=== PATIENT | male | born 1945 | race Caucasian/White ===

== ENCOUNTER 2022-03-08 08:00 | Outpatient (CLI) | payer MEDICARE, BC, SELFPAY ==
--- OUTSIDE RECORDS SUMMARY | 2022-03-08 08:06 | XMS_ITS | Clinical Summary ---
:1945 Author Organization [facility] [place] [address] Care Team Providers Name Role Phone Cristobal Irizarry MD Primary Care Provider Allergies No known active allergies Medications Medication Sig Dispensed Refills Start Date End Date Status brimonidine 0 08/19/2020 Active (ALPHAGAN) 0.2 % ophthalmic solution latanoprost (XALATAN) INSTILL 1 DROP 0 09/09/2020 Active 0.005 % ophthalmic INTO IN EACH EYE solution ONCE DAILY IN THE EVENING timoloL maleate INSTILL 1 DROP IN 0 09/15/2020 Active (TIMOPTIC) 0.5 % EACH EYE DAILY IN ophthalmic solution THE MORNING medication order Preservision- 0 02/27/2021 Active composer Takes one tablet BID. tamsulosin (FLOMAX) Take 2 Capsules 180 Capsule 3 08/28/2021 Active 0.4 mg (0.8 mg) by mouth capsuleIndications: once daily after Benign prostatic a meal. hyperplasia with urinary frequency Active Problems Not on file Immunizations Name Administration Dates Next Due COVID-19 vaccine ([employer] 10/08/2020, 09/17/2020 30mcg/0.3mL) PF, MDV Influenza RIV4 (Age 18+ Years) PRESERV 05/21/2019 FREE Influenza, High-dose Inactivated 04/25/2018, 04/18/2017, Influenza, Inactivated AIIV4 (Age 65+ 03/30/2020 Years) Preserv Free Pneumococcal Poly,23-Valent (Pneumovax) 05/22/2017 Pneumococcal conj 13-Valent (Prevnar 13) 09/19/2016 Tdap 05/02/2016 Zoster (Shingrix-RZV, recombinant) 05/03/2020, 02/29/2020 Social History Tobacco Use Types Packs/Day Years Used Date Never Smoker Smokeless Tobacco: Never Used Tobacco Cessation: Counseling Given: Yes Alcohol Use Standard Drinks/Week Comments Not Currently 0 (1 standard drink = 0.6 oz pure alcoho l) Sex Assigned at Date Recorded Not on file Obstetrics History Last Filed Vital Signs Vital Sign Reading Time Taken Comments Blood Pressure 196/79 08/28/2021 12:57 PM ADMITTED ATTORNEYS Pulse 57 08/28/2021 12:57 PM ADMITTED ATTORNEYS Temperature - - Respiratory Rate 18 10/10/2020 2:16 PM CDT Oxygen Saturation 98% 08/28/2021 12:57 PM ADMITTED ATTORNEYS Inhaled Oxygen Concentration - - Weight 78.7 kg (173 lb 8 oz) 08/28/2021 12:57 PM ADMITTED ATTORNEYS Height - - Body Mass Index - - Plan of Treatment Health Maintenance Due Date Last Done Comments Depression screening for age 12+ 1955 BMI (ht and wt on same day) for 1961 age 18+ Hepatitis C screening for age 0903/16/1961 18-79 Medicare Wellness for age 65+ 2008 COVID-19 vaccine series (4 - 10/14/2021 06/15/2021, 021, Booster for Pfizer series) 09/17/2020 Influenza for age 65+ 03/08/2022 03/30/2020, 05/21/2019, 04/25/2018, Additional history exists Tetanus booster 05/02/2026 05/02/2016 Tdap Completed 05/02/2016 Pneumococcal series for age 65+ Completed 05/22/2017, 09/05 Zoster (shingles) series for age Completed 05/03/2020, 50+ Results Not on filefrom Last 3 Months Insurance Payer Benefit Plan / Subscriber ID Effective Dates Phone Addre ss Type Group BLUE CROSS MR BLUE CROSS [id number] 2017-Present [address] [address] [place], [place] [phone] Care Teams Leasing Assistant Relationship Specialty Start Date End Date Cristobal Irizarry MD PCP - General Internal Medicine 10/10/201999 [place] [phone]
[2022-03-08 10:07] LABS: Albumin* 3.7 g/dL (3.3-5.0)
[2022-03-08 10:08] LABS: Chloride* 106 mmol/L (96-114); Sodium* 142 mmol/L (135-149)
[2022-03-08 10:10] LABS: Aspartate Amino Transferase* 23 U/L (12-35); Bilirubin Total* 0.9 mg/dL (0.1-1.5); Carbon Dioxide* 31 mmol/L (20-32); Creatinine* 1.2 mg/dL (0.5-1.5); Estimated Glomerular Filt Rate 62 ml/min
[2022-03-08 10:11] LABS: Alanine Aminotransferase* 20 U/L (4-50); Alkaline Phosphatase* 57 U/L (40-150); Blood Urea Nitrogen* 32 mg/dL (7-30); Calcium* 8.8 mg/dL (8.4-10.6); Glucose* 90 mg/dL (60-115); Total Protein* 6.9 g/dL (6.0-8.3)
[2022-03-08 10:42] LABS: PSA Screen* 4.82 ng/mL (0.10-4.00)
== END 2022-03-08 08:01 | disposition home or self-care (01) ==
PROVIDERS: PCP Internal Medicine; Visit Provider Internal Medicine
DX: N40.0 Benign prostatic hyperplasia without lower urinary tract symptoms (principal); R63.4 Abnormal weight loss
CPT/HCPCS: 80053; 84153; 87086; 87186

== ENCOUNTER 2022-03-19 11:36 | Emergency (ER) | payer MEDICARE, BC, SELFPAY ==
[2022-03-19 11:53] VITALS: BP 162/76; PULSE 62; RESP 18; TEMP 36.6; O2SAT 99; BMI 19.5
--- OUTSIDE RECORDS SUMMARY | 2022-03-19 13:38 | XMS_ITS | Clinical Summary ---
:1945 Author Organization [facility] [place] [address] Care Team Providers Name Role Phone Cristobal [...] Name Administration Dates Next Due COVID-19 vaccine ([employer] 10/08/2020, 09/17/2020 30mcg/0.3mL) PF, MDV Influenza RIV4 [...] Comments Blood Pressure 196/79 08/28/2021 12:57 PM EXCELLENCE SPECIALIST Pulse 57 08/28/2021 12:57 PM EXCELLENCE SPECIALIST Temperature - - Respiratory Rate 18 10/10/2020 2:16 PM CDT Oxygen Saturation 98% 08/28/2021 12:57 PM EXCELLENCE SPECIALIST Inhaled Oxygen Concentration - - Weight 78.7 kg (173 lb 8 oz) 08/28/2021 12:57 PM EXCELLENCE SPECIALIST Height - - Body Mass Index - [...] Type Group BLUE CROSS MR BLUE CROSS [id number] 2017-Present [address] [address] [place], [place] [phone] Care Teams Bottom Saw Operator Relationship Specialty Start Date End Date Cristobal Irizarry MD PCP - General Internal Medicine 10/10/201999 [place] [phone]
[2022-03-19 13:45] VITALS: BP 177/89; PULSE 54; RESP 18; TEMP 36.2; O2SAT 99
--- NOTE | 2022-03-19 15:40 | ED_ITS ---
HPI - General Adult General Chief complaint: Unspecified Complaint, Adult Stated complaint: dizziness/from clinic Time Seen by Provider: 03/19/22 12:51 History of Present Illness HPI narrative: 77-year-old man presenting to the emergency department upon recommendation of clinic nursing assessment. He had gone there not hearing back about results from recent lab drawn that was done for excessive weight loss. He notes losing I believe least 20 lb over the last 5 months or so unintentionally. Is not describing night sweats. He is not having any pain. Is not vomiting. He was following up today for the labs which admittedly relatively normal-I do review these as well. Looks like next step plan was generalized potential CT imaging if weight loss continued. He also apparently mention that his stool has been dark couple of days ago. He says to me it was not really black it was just darker than usual. The other thing he mentioned is that he is feeling a little dizzy with blurry vision around placement of his eyedrops for glaucoma. He tells me more that he has a sense of wobbliness with some quicker vigorous movements of rather chronic nature. He continues to get up once or twice at night to urinate. Does have known BPH. First thing he says to me is that he is only here because a nurse told him to present to the emergency department. Related Data Home Medications Medication Instructions Recorded Confirmed brimonidine 0.2 % eye drops 1 drp ophthalmic (eye) BID 01/03/22 03/08/22 latanoprost 0.005 % eye drops 1 drp ophthalmic (eye) .Bedtime 01/03/22 03/08/22 multivitamin 1 tab PO QAM 01/03/22 03/08/22 tamsulosin 0.4 mg capsule 2 mg PO DAILY 01/03/22 03/08/22 timolol maleate 0.5 % eye drops 1 drp ophthalmic (eye) BID 01/03/22 03/08/22 Allergies Allergy/AdvReac Type Severity Reaction Status Date / Time No Known Allergies Allergy Unverified 03/08/22 07:43 Review of Systems Status of ROS: Reports: 6 or more systems reviewed and unremarkable except as noted in History and below [facility] Medical History (Updated 03/20/22 @ 15:22 by Gavin Ellis MD) BPH (benign prostatic hyperplasia) Food additives allergy status Weight loss Family History Other Colon cancer Social History Smoking Status: Never smoker Do you use any of these nicotine containing products: None Second hand tobacco smoke exposure: No How often do you have a drink containing alcohol: never How often do you have six or more drinks on one occasion: Never AUDIT-C Alcohol total score: 0 Non-prescribed substance use: denies use Exam Narrative: Exam Narrative: Tall. Thin but not cachectic. Breathing easily. Hesitates a little bit with his speech. Cranial nerves 2-12 intact. As noted pupils equal round reactive to light and accommodation. Testing appears to be not painful. Lungs are clear. Skin is warm and dry. No bruising/indication of trauma noted. Well perfused moving all extremities without difficulty. Does not appear to have a difficulty with transitions. Abdomen is soft nontender. Const: Vital Signs, click to edit/add: Vital Signs - 24 hr 03/19/22 11:53 03/19/22 13:45 Temperature 97.9 F 97.1 F L Pulse Rate [Right Pulse Oximeter] 62 54 L Respiratory Rate 18 18 Blood Pressure [Ri ght Upper Arm] 162/76 H 177/89 H Pulse Oximetry 99 99 Oxygen Delivery Me thod Room Air Room Air Documenting provider has reviewed patient's vital signs: yes Course Course Hospital Course: no interventions Vital Signs Vital signs: Initial Vital Signs Temperature 97.9 F 03/19/22 11:53 Temperature Source Temporal Artery Scan 03/19/22 11:53 Pulse Rate 62 03/19/22 11:53 Respiratory Rate 18 03/19/22 11:53 Blood Pressure 162/76 H 03/19/22 11:53 Blood Pressure Mean 104 03/19/22 11:53 Blood Pressure Position Sitting 03/19/22 11:53 Pulse Oximetry 99 03/19/22 11:53 Oxygen Delivery Method 03/19/22 11:53 Vital Signs Temperature 97.9 F 03/19/22 11:53 Pulse Rate 62 03/19/22 11:53 Respiratory Rate 18 03/19/22 11:53 Blood Pressure 162/76 H 03/19/22 11:53 Pulse Oximetry 99 03/19/22 11:53 Oxygen Delivery Method 03/19/22 11:53 Temperature 97.1 F L 03/19/22 13:45 Pulse Rate 54 L 03/19/22 13:45 Respiratory Rate 18 03/19/22 13:45 Blood Pressure 177/89 H 03/19/22 13:45 Pulse Oximetry 99 03/19/22 13:45 Oxygen Delivery Method 03/19/22 13:45 Medical Decision Making MDM Narrative Medical decision making narrative: There does not appear to be an acute problem here. Primary care provider is aware of Mr. Garcia's concerns and has a plan. I reviewed recently available labs. wnl with only sl elev of psa. looks like some still pending comparing provider notes to resulted labs. Discharge Plan Discharge Clinical Impression: Unexplained weight loss, Chronic vertigo Patient Disposition: Home, Self-Care Condition: Stable Additional Instructions: Yes. Please follow-up with Dr. Irizarry in a month as planned. I would anticipate hearing from him shortly regarding your labs. Check your weight weekly. Return for worsening and persistent dizziness or lightheadedness, shortness of breath, marked increase in weakness, chest pain. Take care in transitions. Prescriptions: No Action timolol maleate 0.5 % drops 1 drp ophthalmic (eye) BID brimonidine 0.2 % drops 1 drp ophthalmic (eye) BID tamsulosin 0.4 mg capsule 2 mg PO DAILY latanoprost 0.005 % drops 1 drp ophthalmic (eye) .Bedtime multivitamin Tablet 1 tab PO QAM Follow Up/Referrals: Cristobal Irizarry MD [Primary Care Provider] - Stand Alone Forms: [id number] Info Instructions
== END 2022-03-19 13:48 | disposition home or self-care (01) ==
LOC: ED 13:36
PROVIDERS: Emergency Provider Family Medicine; PCP Internal Medicine
DX: R42 Dizziness and giddiness (principal); R63.4 Abnormal weight loss
CPT/HCPCS: 99282; 99283

== ENCOUNTER 2022-05-24 13:45 | Outpatient (CLI) | payer MEDICARE, BC, SELFPAY ==
--- OUTSIDE RECORDS SUMMARY | 2022-06-04 14:52 | XMS_ITS | Clinical Summary ---
:1945 Author Organization [facility] [place] [address] Care Team Providers Name Role Phone Cristobal [...] Name Administration Dates Next Due COVID-19 vaccine ([email or web address] 10/08/2020, 09/17/2020 30mcg/0.3mL) PF, MDV Influenza RIV4 [...] Comments Blood Pressure 196/79 08/28/2021 12:57 PM ERRAND RUNNER Pulse 57 08/28/2021 12:57 PM ERRAND RUNNER Temperature - - Respiratory Rate 18 10/10/2020 2:16 PM CDT Oxygen Saturation 98% 08/28/2021 12:57 PM ERRAND RUNNER Inhaled Oxygen Concentration - - Weight 78.7 kg (173 lb 8 oz) 08/28/2021 12:57 PM ERRAND RUNNER Height - - Body Mass Index - - Plan of Treatment Health Maintenance Due Date Last Done Comments Depression screening for age 12+ 1955 BMI (ht and wt on same day) for 1961 age 18+ Hepatitis C screening for age 0903/16/1961 18-79 Medicare Wellness for age 65+ 2008 COVID-19 vaccine series (4 - 08/10/2021 06/15/2021, 021, Booster for Pfizer series) 09/17/2020 [...] Type Group BLUE CROSS MR BLUE CROSS [id number] 2017-Present [address] [address] [place], [place] [phone] Care Teams Sales Stock Associate Relationship Specialty Start Date End Date Cristobal Irizarry MD PCP - General Internal Medicine 10/10/201999 [place] [phone]
== END 2022-05-24 13:46 | disposition home or self-care (01) ==
LOC: NFLDREF 06-04 14:43
PROVIDERS: PCP Internal Medicine; Visit Provider Internal Medicine
DX: R63.4 Abnormal weight loss (principal); N40.0 Benign prostatic hyperplasia without lower urinary tract symptoms
CPT/HCPCS: 87086; 87186

== ENCOUNTER 2023-03-14 08:55 | Outpatient (CLI) | payer MEDICARE, BC, SELFPAY | END 2023-03-14 08:56 | disposition home or self-care (01) | LOC: NFLDREF 03-15 08:03 | PROVIDERS: PCP Internal Medicine; Referring Provider Internal Medicine; Visit Provider Internal Medicine | DX: Z12.5 Encounter for screening for malignant neoplasm of prostate (principal); Z13.6 Encounter for screening for cardiovascular disorders | CPT/HCPCS: 80053; 80061; 84153 ==

== ENCOUNTER 2023-03-19 09:10 | Outpatient (CLI) | payer MEDICARE, BC, SELFPAY | END 2023-03-19 09:11 | disposition home or self-care (01) | PROVIDERS: PCP Internal Medicine; Visit Provider Internal Medicine | DX: R63.4 Abnormal weight loss (principal); N39.0 Urinary tract infection, site not specified; N40.0 Benign prostatic hyperplasia without lower urinary tract symptoms; F41.9 Anxiety disorder, unspecified | CPT/HCPCS: 80053; 84153; 84443; 87086 ==

== ENCOUNTER 2023-04-03 09:27 | Outpatient (CLI) | payer MEDICARE, BC, SELFPAY | END 2023-04-03 09:28 | disposition home or self-care (01) | LOC: NFLDREF 04-06 13:52 | PROVIDERS: PCP Internal Medicine; Referring Provider Internal Medicine; Visit Provider Internal Medicine | DX: N39.0 Urinary tract infection, site not specified (principal) | CPT/HCPCS: 87086 ==

== ENCOUNTER 2023-11-27 09:46 | Outpatient (CLI) | payer MEDICARE, BC, SELFPAY ==
--- OUTSIDE RECORDS SUMMARY | 2023-11-27 09:50 | XMS_ITS | Clinical Summary ---
Author Organization [facility] Address [place], [place] [address] Care Team Providers Care Mechanical Maintenance Technician Name Role Phone Cristobal Irizarry MD Primary Care Provider Allergies No known active allergies Medications Medication Sig Dispensed Refills Start Date End Date Status brimonidine (ALPHAGAN) 0.2 % ophthalmic solution 08/19/2020 Activ e latanoprost (XALATAN) 0.005 % ophthalmic solution INSTILL 1 DROP INTO IN EACH EYE ONCE DAILY IN THE EVENING 09/09/2020 Active timoloL maleate (TIMOPTIC) 0.5 % ophthalmic solution INSTILL 1 DROP IN EACH EYE DAILY IN THE MORNING 09/15/2020 Active medication order composer Preservision- Takes one tablet BID. 0 02/27/2021 Active tamsulosin (FLOMAX) 0.4 mg capsuleIndications:B enign prostatic hyperplasia with urinary frequency Take 2 Capsules (0.8 mg) by mouth once daily after a meal. 180 Capsule 3 08/28/2021 Active Immunizations Name Administration Dates Next Due COVID-19 vaccine ([employer] NTBiart 30mcg/0.3mL) JACKIE JACKSON 10/08/2020,09/17/2020 Influenza RIV4 (Age 18+ Years) PRESERV FREE 05/08 Influenza, High-dose Inactivated 04/25/2018,04/07,05/02/2016 Influenza, Inactivated AIIV4 (Age 65+ Years) Preserv Free 03/30/2020 Pneumococcal Poly,23-Valent (Pneumovax) 05/22/20 17 Pneumococcal conj 13-Valent (Prevnar 13) 017 Tdap 05/02/2016 Zoster (Shingrix-RZV, recombinant) 05/03/2020, Social History Tobacco Use Types Packs/Day Years Used Date Smoking Tobacco: Never Smokeless Tobacco: Never Tobacco Cessation:Counseling Given: Yes Alcohol Use Standard Drinks/Week Comments Not Currently 0 (1 standard drink = 0.6 oz pur e alcohol) Sex and Gender Information Value Date Recorded Sex Assigned at Not on file Gender Identity Not on file Sexual Orientation Not on file Obstetrics History Last Filed Vital Signs Vital Sign Reading Time Taken Comments Blood Pressure 196/79 08/28/2021 12:57 PM BOTTOM TURNING LATHE TURNER Pulse 57 08/28/2021 12:57 PM BOTTOM TURNING LATHE TURNER Temperature - - Respiratory Rate 18 10/10/2020 2:16 PM CDT Oxygen Saturation 98% 08/28/2021 12:57 PM BOTTOM TURNING LATHE TURNER Inhaled Oxygen Concentration - - Weight 78.7 kg (173 lb 8 oz) 08/28/2021 12:57 PM BOTTOM TURNING LATHE TURNER Height - - Body Mass Index - - Plan of Treatment Health Maintenance Due Date Last Done Comments Depression screening for age 12+ 1955 BMI (ht and wt on same day) for age 18+ 1961 Medicare Wellness for age 65+ 2008 COVID-19 vaccine series ( season) 2023 06/15/2021, 10/08/2020, 09/17/2020 Influenza for age 65+ 03/08/2024 03/30/2020 , 05/21/2019, 04/25/2018, Additional history exists Tetanus booster 05/02/2026 05/02/2016 Tdap Completed 05/02/2016 Pneumococcal series for age 65+ Completed 7, 09/19/2016 Zoster (shingles) series for age 50+ Completed 05/03/2020, 02/29/2020 Care Teams Mechanical Maintenance Technician Relationship Specialty Start Date End Date Cristobal Irizarry MD [address] [place] [address] PCP - General Internal Medicine 10/10/20
== END 2023-11-27 09:47 | disposition home or self-care (01) ==
PROVIDERS: PCP Internal Medicine; Visit Provider Internal Medicine
DX: R63.4 Abnormal weight loss (principal); N39.0 Urinary tract infection, site not specified
CPT/HCPCS: 80053; 84443; 87086; 87186

== ENCOUNTER 2023-12-12 10:20 | Outpatient (CLI) | payer MEDICARE, BC, SELFPAY ==
--- OUTSIDE RECORDS SUMMARY | 2023-12-16 18:07 | XMS_ITS | Clinical Summary ---
Author Organization [facility] Address [place], [place] [address] Care Team Providers Care Tube Carrier Name Role Phone Cristobal Irizarry MD Primary [...] Name Administration Dates Next Due COVID-19 vaccine ([employer] 30mcg/0.3mL) JACKIE JACKSON 10/08/2020,09/17/2020 Influenza RIV4 (Age [...] Comments Blood Pressure 196/79 08/28/2021 12:57 PM SECOND CUTTER Pulse 57 08/28/2021 12:57 PM SECOND CUTTER Temperature - - Respiratory Rate 18 10/10/2020 2:16 PM CDT Oxygen Saturation 98% 08/28/2021 12:57 PM SECOND CUTTER Inhaled Oxygen Concentration - - Weight 78.7 kg (173 lb 8 oz) 08/28/2021 12:57 PM SECOND CUTTER Height - - Body Mass Index - [...] age 50+ Completed 05/03/2020, 02/29/2020 Care Teams Tube Carrier Relationship Specialty Start Date End Date Cristobal Irizarry MD [address] [place] [address] PCP - General Internal Medicine 10/10/20
== END 2023-12-12 10:21 | disposition home or self-care (01) ==
LOC: NFLDREF 12-16 18:05
PROVIDERS: PCP Internal Medicine; Referring Provider Internal Medicine; Visit Provider Internal Medicine
DX: N39.0 Urinary tract infection, site not specified (principal); B95.2 Enterococcus as the cause of diseases classified elsewhere
CPT/HCPCS: 87086; 87186

== ENCOUNTER 2023-12-23 13:19 | Outpatient (CLI) | payer MEDICARE, BC, SELFPAY ==
--- OUTSIDE RECORDS SUMMARY | 2023-12-27 18:55 | XMS_ITS | Data Portability ---
Author Organization [place] [facility] [place] [facility], [facility] Address [address] [facility] [address] [place] [address] Care Team Providers Care Global Sales Director Name Role Phone BEBO ANGUIANO Referring Provider Assessment No assessment recorded. Plan of Treatment Reminders Order Date Submit Date Provider Last Modified By Organization Details Last Modified Time Details Appointments None record ed. Lab None record ed. Referral None record ed. Procedures None record ed. Surgeries None record ed. Imaging None record ed. Medication Orders None record ed. Patient TargetsNo targets recorded. Patient InstructionsNo instructions recorded. Reason for Referral None Reported. Results Created Date Observation Date Name Description Value Unit Range Abnormal Flag LastModifiedBy Organization Detail LastModifiedTime 10/13/19 21 10/10/2020 measu remen t of post- voidi ng resid ual urine and/o r bladd er capac ity (PROC ) No observ ation record ed. [email or web address] Not Available 10/12/2020 10:03:27 11/25/19 21 11/21/2020 measu remen t of post- voidi ng resid ual urine and/o r bladd er capac ity (PROC ) No observ ation record ed. [email or web address] Not Available 11/24/2020 09:58:59 03/03/20 21 02/27/2021 measu remen t of post- voidi ng resid ual urine and/o r bladd er capac ity (PROC ) No observ ation record ed. [email or web address] Not Available 03/03/2021 11:02:14 08/30/19 22 08/28/2021 measu remen t of post- voidi ng resid ual urine and/o r bladd er capac ity (PROC ) No observ ation record ed. [email or web address] Not Available 08/30/2021 10:59:37 Result Notes None recorded. Procedures Surgical History Date Name Laterality Status Provider Name and Address Organization Details Recorded Time 04/22/20 Bladder Scan completed Debra buitrago [facility] 04/22/2023 14:35:04 04/07/19 91 cholecystectomy completed Debrakush buitrago [facility] 04/22/2023 14:21:33 04/07/19 76 procedure on back completed Debrakush buitrago [facility] 04/22/2023 14:21:20 vasectomy completed Debrakush buitrago [facility] 04/22/2023 14:22:04 Imaging Results Imaging Date Name Status LastModified by Organiz ation Details LastModified Time 10/10/2020 measurement of post-voiding residual urine and/or bladder capacity (PROC) completed Information not available 10/12/2020 10:03:27 11/21/2020 measurement of post-voiding residual urine and/or bladder capacity (PROC) completed Information not available 11/24/2020 09:58:59 02/27/2021 measurement of post-voiding residual urine and/or bladder capacity (PROC) completed Information not available 03/03/2021 11:02:14 08/28/2021 measurement of post-voiding residual urine and/or bladder capacity (PROC) completed Information not available 08/30/2021 10:59:37 Procedure Notes None recorded. Medical Equipment None Reported. Allergies No known drug allergies Medications Name Sig Start Date Stop Date Status Note LastModified by Organization Details LastModified Time latanoprost 0.005 % eye drops INSTILL 1 DROP INTO EACH EYE ONCE DAILY IN THE EVENING active Not Available Not Available No t Available triamcinolo ne acetonide 0.5 % topical cream APPLY TOPICALLY EVERY DAY FOR RASH 04/22 completed Not Available Not Available Not Available sulfamethox azole 800 mg-trimetho prim 160 mg tablet TAKE ONE TABLET BY MOUTH TWICE A DAY 04/22 completed Not Available Not Available Not Available triamcinolo ne acetonide 0.1 % topical cream APPLY TOPICALLY TWICE A DAY 04/22 completed Not Available Not Available Not Available tamsulosin 0.4 mg capsule TAKE TWO CAPSULES BY MOUTH EVERY DAY FOR BPH active Not Available Not Available No t Available brimonidine 0.2 % eye drops INSTILL 1 DROP IN EACH EYE TWICE A DAY active Not Available Not Available No t Available timolol maleate 0.5 % eye drops INSTILL 1 DROP IN EACH EYE DAILY IN THE MORNING active Not Available Not Available No t Available Vitals Date Recorded Body height Body mass index (BMI) Body weight Provider Name and Address Organization Details Last Updated DateTime 04/22/2023 185.42 cm 19.8 kg/m2 82470.86 g Debra Roddy [facility] 04/22/2023 14:19:05 Social History Question Answer Notes LastModified by Organizat ion Details LastModified Time Tobacco [facility] 14:20:37 What Is Your Level Of Alcohol Consumption? None Information not available 04/22/2023 What Is Your Level Of Caffeine Consumption? None Information not available 04/22/2023 What Was The Date Of Your Most Recent Tobacco Screening? 04/22/2023 Information not available 04/22/2023 Sex: Male Functional Status None recorded. Mental Status None recorded. Family History Nothing Reported. Medical History Condition Response Other N High Blood Pressure N Kidney Stones N Depression N Lung Disease N GERD/Acid Reflux N Diabetes N Sexually Transmitted Infection N Bleeding Disorder N Cancer N High Cholesterol N Heart Disease N Immunizations Vaccine Type Date Status Provider Name and Address Organization Details Recorded Time Influenza, recombinant, quadrivalent, PF 05/21/2019 completed Debra Pereyra [facility] 04/22/2023 14:17:56 zoster [facility] 14:17:56 zoster recombinant 05/03/2020 completed Debra Pereyra [facility] 04/22/2023 14:17:56 Influenza, high-dose, quadrivalent, PF [facility]2023 [facility] 14:17:56 Influenza, high-dose, quadrivalent, PF 04/12/2022 completed Debra Pereyra [facility], [facility] 04/22/2023 14:17:56 Influenza, high-dose, quadrivalent, PF 04/26/2021 completed Debra Pereyra [facility] 04/22/2023 14:17:56 Influenza, adjuvanted, quadrivalent, PF 03/30/2020 completed Debra Pereyra [facility] 04/22/2023 14:17:56 COVID-19, mRNA, LNP-S, PF, 30 mcg/0.3 mL dose 09/17/2020 completed Debra Pereyra [facility] 04/22/2023 14:17:56 COVID-19, mRNA, LNP-S, PF, 30 mcg/0.3 mL dose 10/08/2020 completed Debra Pereyra [facility] 04/22/2023 14:17:56 COVID-19, mRNA, LNP-S, PF, 30 mcg/0.3 mL dose 12/26/2021 completed Debra Pereyra [facility] 04/22/2023 14:17:56 COVID-19, mRNA, LNP-S, PF, 30 mcg/0.3 mL dose 06/15/2021 completed Debra Pereyra [facility] 04/22/2023 14:17:56 COVID-19, mRNA, LNP-S, bivalent, PF, 50 mcg/0.5 mL or 25mcg/0.25 mL dose 05/01/2022 completed Debra Pereyra [facility] 04/22/2023 14:17:56 pneumococcal polysaccharide PPV23 05/22/2017 completed Debra Pereyra [facility] 04/22/2023 14:17:56 Tdap 05/02/2016 completed Debra Pereyra [facility] 04/22/2023 14:17:56 Pneumococcal conjugate PCV 13 09/19/2016 completed Debra Pereyra [facility] 04/22/2023 14:17:56 Influenza, high-dose, trivalent, PF 04/18/2017 completed QUINTEN [facility] 04/22/2023 14:17:56 Influenza, high-dose, trivalent, PF 04/25/2018 completed QUINTEN Locke [facility] 04/22/2023 14:17:56 Influenza, high-dose, trivalent, PF 05/02/2016 completed Debra Pereyra minna QUINTEN [facility] 04/22/2023 14:17:56 Past Encounters Encounter ID Performer Location Encounter Start Date Encounter Closed Date Diagnosis/Indication Diagnosis SNOMED-CT Code [id number] JUWAN PALMA PA-C [facility] [address] [place] [address] 04/22/2023 14:09:21 04/29/2023 14:16:41 Lower urinary tract symptoms due to benign prostatic hypertrophy [id number] Prostate s pecific antigen above reference range [id number] Health Concerns Section Related Observation LastModified by Organization Detai ls LastModified Time None Recorded Concern Status LastModified by Organization Details LastModified Time None Recorded Advance Directives Directive None Recorded Payers Encounter Date Sequence Insurance Name Policy Number Policy Downs Covered Member ID Downs Member ID Guarantor Name 04/22/2023 1 [place]) [id number] Sumit Garcia [id number] Sumit Garcia Notes Date Note Type Note Provider Name and Address Organization Details Recorded Time 04/22/2023 text/html HPI Notes: 78 yo M who has previously followed with Dr Mason in [place] presents for concerns regarding urinary frequency. H/o BPH with LUTS, on Flomax 0.8 mg daily. Also with h/o somewhat elevated a labile PSA. Up to peak of 6.17 in 2020. PSA last month 4.52. Today he reports nocturia x3-4. Denies daytime frequency but occasional urgency. Stream strength OK. Nocturia worse when he eats spicy foods. No hematuria or dysuria. Regular BMs. He is very regimented about his diet. Does not drink alcohol. No recent infections. Limits PM fluids. Does endorse some erectile dysfunction, though does not want to address this issue today. PVR 92 ml today No family of prostate or bladder cancer. JUWAN PALMA PA-C [address] [place] [address],[address], [place], [address], [facility] 04/22/2023 17:27:57
--- OUTSIDE RECORDS SUMMARY | 2023-12-27 18:55 | XMS_ITS | Clinical Summary ---
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
== END 2023-12-23 13:20 | disposition home or self-care (01) ==
LOC: NFLDREF 12-27 18:53
PROVIDERS: PCP Internal Medicine; Referring Provider Internal Medicine; Visit Provider Internal Medicine
DX: N39.0 Urinary tract infection, site not specified (principal); R39.89 Other symptoms and signs involving the genitourinary system; N40.0 Benign prostatic hyperplasia without lower urinary tract symptoms
CPT/HCPCS: 87086

== ENCOUNTER 2024-12-07 09:47 | Outpatient (CLI) | payer OTHER, MEDICARE, BC, SELFPAY | END 2024-12-07 09:48 | disposition home or self-care (01) | LOC: AMB 12-09 17:34 | PROVIDERS: PCP Internal Medicine; Visit Provider Family Medicine | DX: S79.912A Unspecified injury of left hip, initial encounter (principal); V43.02XA Car driver injured in collision with other type car in nontraffic accident, initial encounter; Y92.410 Unspecified street and highway as the place of occurrence of the external cause | CPT/HCPCS: A0425; A0427 ==

== ENCOUNTER 2024-12-07 10:28 | Emergency (ER) | payer OTHER, MEDICARE, BC, SELFPAY ==
[2024-12-07] VITALS (14 sets, daily range): BP systolic 135–190; BP diastolic 71–119; PULSE 56–74; RESP 8–20; TEMP 36.6–36.8; O2SAT 96–99; BMI 20.4
--- OUTSIDE RECORDS SUMMARY | 2024-12-07 10:17 | XMS_ITS | Data Portability ---
Author Organization [facility], [facility] Address [address] [facility] [address] [place] [address] Care Team Providers Care Assisted Living Associate Name Role Phone BEBO ANGUIANO Referring Provider [...] instructions recorded. Reason for Referral None Reported. Procedures Surgical History Date Name Laterality Status Provider Name and Address Organization Details Recorded Time 023 Bladder Scan completed [facility] 04/22/2023 14:35:04 991 cholecystectomy completed [facility] 04/22/2023 14:21:33 976 procedure on back completed [facility] 04/22/2023 14:21:20 vasectomy completed [facility] 04/22/2023 14:22:04 Imaging Results None recorded. Procedure Notes None recorded. Medical Equipment None [...] Updated DateTime 04/22/2023 185.42 cm 19.8 kg/m2 68253.86 g Debra Pereyra [facility] 04/22/2023 14:19:05 Social History Question Answer Notes LastModified by Organizat ion Details LastModified Time Tobacco Smoking Status Never Smoker Debra buitrago [facility] 04/22/2023 14:20:37 What Is Your Level Of Caffeine Consumption? None Information not available 04/22/2023 What Was The Date Of Your Most Recent Tobacco Screening? 04/22/2023 Information not available 04/22/2023 Sex: Unknown Functional Status Question Answer Note LastModified by Organization D etails LastModified Time What is your level of alcohol consumption? None Information not available 04/22/2023 Mental Status None recorded. Family History Nothing Reported. Medical History Condition Response Other N High Blood Pressure N Kidney Stones N Lung Disease N Depression N GERD/Acid Reflux N Sexually Transmitted Infection N Diabetes N Bleeding Disorder N Cancer N High Cholesterol N Heart Disease N Immunizations Vaccine Type Date Status Note Provider Nam e and Address Organization Details Recorded Time Influenza, recombinant, quadrivalent, PF 9 completed [facility] 04/22/2023 14:17:56 zoster recombinant 0 completed Debra buitrago [facility] 04/22/2023 14:17:56 [facility]oster recombinant [facility] 14:17:56 Influenza, high-dose, quadrivalent, PF 3 completed Debra Castrodominicauer null, [facility] 04/22/2023 14:17:56 Influenza, high-dose, quadrivalent, PF 2 completed Debra Castrodominicauer null, [facility] 04/22/2023 14:17:56 Influenza, high-dose, quadrivalent, PF 1 completed Debra Shirleyauer [facility], [facility] 04/22/2023 14:17:56 Influenza, adjuvanted, quadrivalent, PF 0 completed Debra Shirleyauer [facility], [facility] 04/22/2023 14:17:56 COVID-19, mRNA, LNP-S, PF, 30 mcg/0.3 mL dose 1 completed Debra Roddy [facility] 04/22/2023 14:17:56 COVID-19, mRNA, LNP-S, PF, 30 mcg/0.3 mL dose 1 completed Debra Roddy [facility] 04/22/2023 14:17:56 COVID-19, mRNA, LNP-S, PF, 30 mcg/0.3 mL dose 2 completed Debra Roddy [facility] 04/22/2023 14:17:56 COVID-19, mRNA, LNP-S, PF, 30 mcg/0.3 mL dose 1 completed Debra Roddy [facility] 04/22/2023 14:17:56 COVID-19, mRNA, LNP-S, bivalent, PF, 50 mcg/0.5 mL or 25mcg/0.25 mL dose 2 completed Debra Pereyra [facility] 04/22/2023 14:17:56 pneumococcal polysaccharide PPV23 7 completed Debra Pereyra [facility] 04/22/2023 14:17:56 Tdap 6 completed Debra Pereyra [facility] 04/22/2023 14:17:56 Pneumococcal conjugate PCV 13 7 completed Debra Castromarisela minna, [facility] 04/22/2023 14:17:56 Influenza, high-dose, trivalent, PF 7 completed Debra Castromarisela minna, [facility] 04/22/2023 14:17:56 Influenza, high-dose, trivalent, PF 8 completed Debra buitrago, [facility] 04/22/2023 14:17:56 Influenza, high-dose, trivalent, PF 6 completed Debra Castromarisela minna, [facility] 04/22/2023 14:17:56 Past Encounters Encounter ID Performer Location Encounter Start Date Encounter Closed Date Diagnosis/Indication Diagnosis SNOMED-CT Code Diagnosis ICD10 Code Diagnosis Note [id number] JUWAN PALMA PA-C [facility] [address] [place] [address] 04/22/2023 14:09:21 04/29/2023 14:16:41 Lower urinary tract symptoms due to benign prostatic hypertrophy [id number] 9101 N40.1 Continue Flomax - will try dropping to one a day and see if this makes any difference Empties well, stable.Not interested in further treatment at this timeDiscus sed options for worsening urinary symptoms - add Finasterid e vs. workup for procedure such as TURP. Prostate s pecific antigen above reference range [id number] R97.20 PSA down since ontin ue to follow with PCP Health Concerns Section Related Observation LastModified by Organization Detai ls LastModified Time None Recorded Concern Status LastModified by Organization Details LastModified Time None Recorded Advance Directives Directive None Recorded Payers Insurance Date Sequence Insurance Name Policy Number Policy Downs Covered Member ID Downs Member ID Guarantor Name 04/22/2023 1 *SELF PAY* Ro caitlin Garcia 04/22/2023 1 [place] MEDICARE COST [id number] Sumit Garcia [id number] Sumit Garcia 04/29/2023 1 [place] ([place]) [id number] Sumit Garcia [id number] Sumit Garcia Notes Date Note Type Note Provider Name and Address Organization Details Recorded Time 04/22/2023 text/html 78 yo M who has previously followed with Dr Mason in [place] presents for concerns regarding urinary frequency. H/o [...] prostate or bladder cancer. JUWAN PALMA PA-C [address] [facility],[address], [place], [address], [facility] 04/22/2023 17:27:57
--- OUTSIDE RECORDS SUMMARY | 2024-12-07 10:17 | XMS_ITS | Clinical Summary ---
Author Organization [employer] [facility] Address [address] [place] [address] Care Team Providers Care Manager Behavior Name Role Phone Cristobal Irizarry MD Primary Care Provider Allergies No known active allergies Medications brimonidine (ALPHAGAN) 0.2 % ophthalmic solution 1 Active latanoprost (XALATAN) 0.005 % ophthalmic solution INSTILL 1 DROP INTO IN EACH EYE ONCE DAILY IN THE EVENING 1 Active timoloL maleate (TIMOPTIC) 0.5 % ophthalmic solution INSTILL 1 DROP IN EACH EYE DAILY IN THE MORNING 1 Active medication order composer Preservision- Takes one tablet BID. 0 1 Active tamsulosin (FLOMAX) 0.4 mg capsuleIndicatio ns:Benign prostatic hyperplasia with urinary frequency Take 2 Capsules (0.8 mg) by mouth once daily after a meal. 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 Gender Identity Not on file Sexual Orientation Not on file Obstetrics History Last Filed Vital Signs Vital Sign Reading Time Taken Comments Blood Pressure 196/79 08/28/2021 12:57 PM BOTTLER HELPER Pulse 57 08/28/2021 12:57 PM BOTTLER HELPER Temperature - - Respiratory Rate 18 10/10/2020 2:16 PM CDT Oxygen Saturation 98% 08/28/2021 12:57 PM BOTTLER HELPER Inhaled Oxygen Concentration - - Weight 78.7 kg (173 lb 8 oz) 08/28/2021 12:57 PM BOTTLER HELPER Height - - Body Mass Index - - Plan of Treatment Health Maintenance Due Date Last Done Comments Depression screening for age 12+ 1955 BMI (ht and wt on same day) for age 18+ 1961 Medicare Wellness for age 65+ 2008 RSV vaccine for adults or (1 - 1-dose 75+ series) 2018 COVID-19 vaccine series ( season) 2024 06/15/2021, 10/08/2020, 09/17/2020 Influenza Vaccine (Season Ended) 2025 03/30/2020, 05/21/2019, 04/25/2018, Additional history exists Tetanus booster 05/02/2026 05/02/2016 Tdap Completed 05/02/2016 Pneumococcal series for age 50+ Completed 05/22/2017, 09/19/2016 Zoster (shingles) series for age 50+ Completed 05/03/2020, 02/29/2020 Hepatitis B series for 19+ Aged Out N o longer eligible based on patient's age to complete this topic Insurance BLUE CROSS [employer] BLUE MR PB ONLY Care Teams Manager Behavior Relationship Specialty Start Date End Date Cristobal Irizarry MD [address] [place] [address] PCP - General Internal Medicine 10/10/20
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
[2024-12-07 10:42] LABS: HCO3 VBG 26 mmol/L (21-28); PCO2 VBG 47 mmHG (40-50); PO2 VBG < 30.1 mmHG (25-47); pH VBG 7.356 (7.32-7.43)
[2024-12-07 10:45] LABS: Basophils Absolute Auto 0.04 K/uL (0.00-0.30); Basophils Percent Auto 0.6 % (0.0-3.0); Eosinophils Absolute Auto 0.33 K/uL (0.00-0.50); Eosinophils Percent Auto 4.6 % (0.0-7.0); Hematocrit 33.8 % (37.0-53.0); Hemoglobin* 11.1 gm/dL (13.5-17.5); Immature Granulocytes Abs Auto 0.11 K/uL (0.00-0.30); Immature Granulocytes Pct Auto 1.5 %; Lymphocytes Absolute Auto 1.89 K/uL (0.90-2.90); Lymphocytes Percent Auto 26.1 % (20-44); Mean Corpuscular HGB Conc 33 gm/dL (32-36); Mean Corpuscular Hemoglobin 32 pg (26-34); Mean Corpuscular Volume 98 fL (80-100); Monocytes Percent Auto 5.4 % (0.0-11.0); Neutrophils Absolute Auto 4.48 K/uL (1.7-7.0); Neutrophils Percent Auto 61.8 % (42.0-72.0); Platelet Count* 175 K/uL (140-440); RDW Coefficient of Variation % 13.3 % (11.5-15.5); Red Blood Count 3.45 m/uL (4.30-5.90); White Blood Count* 7.24 K/uL (4.50-11.00)
[2024-12-07 10:49] LABS: Slide Review Reflex No
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
[2024-12-07 11:04] LABS: Albumin* 3.9 g/dL (3.3-5.0); Chloride* 108 mmol/L (96-114); Sodium* 141 mmol/L (135-149)
[2024-12-07 11:07] LABS: Alanine Aminotransferase* 28 U/L (4-50); Alkaline Phosphatase* 48 U/L (40-150); Anion Gap 7 mEq/L (7-15); Aspartate Amino Transferase* 33 U/L (12-35); Bilirubin Direct* 0.2 mg/dL (0.0-0.5); Bilirubin Total* 0.8 mg/dL (0.1-1.5); Blood Urea Nitrogen* 32 mg/dL (7-30); Calcium* 8.7 mg/dL (8.4-10.6); Carbon Dioxide* 26 mmol/L (20-32); Creatinine* 1.1 mg/dL (0.5-1.5); Est. Creatinine Clearance* 52.38; Estimated Glomerular Filt Rate 67 ml/min; Glucose* 134 mg/dL (60-115); Total Protein* 6.9 g/dL (6.0-8.3)
[2024-12-07 11:08] LABS: Magnesium* 2.1 mg/dL (1.5-2.6)
[2024-12-07 11:23] LABS: Appearance Urine Clear (Clear); Bilirubin Urine Negative (Negative); Blood Urine 2+ (Negative); Color Urine Yellow (Yellow); Glucose Urine Negative (Negative); Ketones Urine Negative (Negative); Leukocyte Esterase Urine 1+ (Negative); Nitrite Urine Negative (Negative); Protein Urine Negative (Negative); Specific Gravity Urine 1.015 (1.000-1.030); Urobilinogen Urine 0.2 (0.2-1.0)
[2024-12-07 11:26] LABS: Troponin I* < 0.01 ng/mL (0.01-0.04)
[2024-12-07 11:32] LABS: Squamous Epithelial Cell Urine Few (None-Few)
[2024-12-07 11:40] LABS: Amphetamine Screen Urine Negative (Negative); Barbiturate Screen Urine Negative (Negative); Benzodiazepines Screen Urine Negative (Negative); Cannabinoid Screen Urine Negative (Negative); Cocaine Screen Urine Negative (Negative); Methadone Screen Urine Negative (Negative); Methamphetamines Screen Urine Negative (Negative); Opiate Screen Urine Negative (Negative); Oxycodone Screen Urine Negative (Negative); Phencyclidine Screen Urine Negative (Negative); Tricyclic Antidepressant Urine Negative (Negative)
[2024-12-07 11:52] LABS: Lactate* 1.3 mmol/L (0.5-1.9)
[2024-12-07 11:57] LABS: PCR FLU A Negative PCR FLU A (Negative); PCR FLU B Negative PCR FLU B (Negative); PCR RSV Negative PCR RSV (Negative); SARS PCR* Negative SARS-CoV-2 (Negative)
--- OUTSIDE RECORDS SUMMARY | 2024-12-07 12:42 | XMS_ITS | Data Portability ---
Author Organization [facility], [facility] Address [address] [place] [address] Care Team Providers Care Financial Economist Name Role Phone BEBO ANGUIANO Referring Provider [...] Details Recorded Time 023 Bladder Scan completed [facility] 04/22/2023 14:35:04 991 cholecystectomy completed [facility] 04/22/2023 14:21:33 976 procedure on back completed [facility] 04/22/2023 14:21:20 vasectomy completed [facility] 04/22/2023 14:22:04 Imaging Results None recorded. [...] Updated DateTime 04/22/2023 185.42 cm 19.8 kg/m2 44823.86 g Debra Pereyra [facility] 04/22/2023 14:19:05 Social History Question Answer Notes LastModified by Organizat ion Details LastModified Time Tobacco Smoking Status Never Smoker Debra buitrago [facility] 04/22/2023 14:20:37 What Is Your Level Of [...] recombinant, quadrivalent, PF 9 completed [facility] 04/22/2023 14:17:56 zoster recombinant 0 completed Debra buitrago [facility] 04/22/2023 14:17:56 zoster recombinant [facility] 14:17:56 Influenza, high-dose, quadrivalent, PF 3 completed Debra Castrodominicauer null, [facility] 04/22/2023 14:17:56 Influenza, high-dose, quadrivalent, PF 2 completed Debra Castrodominicauer null, [facility] 04/22/2023 14:17:56 Influenza, high-dose, quadrivalent, PF 1 completed Debra Shirleyauer [facility], [facility] 04/22/2023 14:17:56 Influenza, adjuvanted, quadrivalent, PF 0 completed Debra Shirleyauer [facility], [facility] 04/22/2023 14:17:56 COVID-19, mRNA, LNP-S, PF, 30 mcg/0.3 mL dose 1 completed Debra Roddy [facility] 04/22/2023 14:17:56 COVID-19, mRNA, LNP-S, PF, 30 mcg/0.3 mL dose 1 completed Debra Roddy [facility] 04/22/2023 14:17:56 COVID-19, mRNA, LNP-S, PF, 30 mcg/0.3 mL dose 2 completed Debra Roddy [facility] 04/22/2023 14:17:56 COVID-19, mRNA, LNP-S, PF, 30 mcg/0.3 mL dose 1 completed Debra Roddy [facility] 04/22/2023 14:17:56 COVID-19, mRNA, LNP-S, bivalent, PF, 50 mcg/0.5 mL or 25mcg/0.25 mL dose 2 completed Debra Pereyra [facility] 04/22/2023 14:17:56 pneumococcal polysaccharide PPV23 7 completed Debra Pereyra [facility] 04/22/2023 14:17:56 Tdap 6 completed Debra Pereyra [facility] 04/22/2023 14:17:56 Pneumococcal conjugate PCV 13 7 completed Debra Castromarisela minna, [facility] 04/22/2023 14:17:56 Influenza, high-dose, trivalent, PF 7 completed Debra Castromarisela minna, [facility] 04/22/2023 14:17:56 Influenza, high-dose, trivalent, PF 8 completed Debra buitrago, [facility] 04/22/2023 14:17:56 Influenza, high-dose, trivalent, PF 6 completed Debra Castromarisela minna, [facility] 04/22/2023 14:17:56 Past Encounters Encounter ID Performer Location Encounter Start Date Encounter Closed Date Diagnosis/Indication Diagnosis SNOMED-CT Code Diagnosis ICD10 Code Diagnosis Note [id number] JUWAN PALMA PA-C [facility] [address] [place] [phone] 04/22/2023 14:09:21 04/29/2023 14:16:41 Lower urinary tract symptoms due to benign prostatic hypertrophy [id number] 9101 N40.1 Continue Flomax - will try dropping to one a day and see if this makes any difference Empties well, stable.Not interested in further treatment at this timeDiscus sed options for worsening urinary symptoms - add Finasterid e vs. workup for procedure such as TURP. Prostate s pecific antigen above reference range [id number] R97.20 PSA down since ontin ue to [...] PAY* Ro caitlin Garcia 04/22/2023 1 [place]IC[place] COST [id number] Sumit Garcia [id number] Sumit Garcia 04/29/2023 1 [place] ([place]) [id number] Sumit Garcia [id number] Sumit Garcia Notes Date Note Type Note Provider Name and Address Organization Details Recorded Time 04/22/2023 text/html 78 yo M who has previously followed with Dr Mason in [place] presents for concerns regarding urinary frequency. H/o [...] prostate or bladder cancer. JUWAN PALMA PA-C [address], [place], [address], [facility] 04/22/2023 17:27:57
--- NOTE | 2024-12-07 13:32 | PC.NURSE ---
Report given to RN in ER at [facility]. All questions answered.
== END 2024-12-07 13:58 | disposition other institution (70) ==
PROVIDERS: Emergency Provider Student in an Organized Health Care Education/Training Program; PCP Internal Medicine
DX: S32.041A Stable burst fracture of fourth lumbar vertebra, initial encounter for closed fracture (principal); N39.0 Urinary tract infection, site not specified; V43.52XA Car driver injured in collision with other type car in traffic accident, initial encounter
CPT/HCPCS: 36415; 70450; 71260; 72125; 74177; 80048; 80076; 80306; 81001; 82803; 83605; 83735; 84484; 85025; 87086; 87631; 93005; 99285; 99291; G0390; Q9967

== ENCOUNTER 2024-12-07 13:30 | Outpatient (CLI) | payer OTHER, MEDICARE, BC, SELFPAY | END 2024-12-07 13:31 | disposition home or self-care (01) | LOC: AMB 12-09 17:48 | PROVIDERS: PCP Internal Medicine; Visit Provider Family Medicine | DX: S32.001A Stable burst fracture of unspecified lumbar vertebra, initial encounter for closed fracture (principal); N39.0 Urinary tract infection, site not specified | CPT/HCPCS: A0425; A0427 ==

== ENCOUNTER 2025-01-29 09:30 | Outpatient (RCR) | payer OTHER, MEDICARE, BC, SELFPAY ==
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
== END 2025-05-29 23:59 | disposition home or self-care (01) ==
PROVIDERS: PCP Internal Medicine; Visit Provider Internal Medicine
DX: S32.000D Wedge compression fracture of unspecified lumbar vertebra, subsequent encounter for fracture with routine healing (principal); Z51.89 Encounter for other specified aftercare
CPT/HCPCS: 97110; 97116; 97162

== ENCOUNTER 2025-06-21 15:22 | Emergency (ER) | payer MEDICARE, BC, SELFPAY ==
--- OUTSIDE RECORDS SUMMARY | 2025-05-20 10:00 | XMS_ITS | Encounter Summary ---
Author Organization [facility] Address [address] [place] [address] Care Team Providers Care Health Science Writer Name Role Phone Cristobal Irizarry MD Primary Care Provider [phone] Etta Menezes APRN, LEAD PRESS OPERATOR Unavailable [phone] Encounter Details DateTypeDepartmentCare Team (Latest Contact Info)Miktvuorfap65/13/2025 10:00 AM CSTAncillary Procedure [facility] [address] [place] [address] Mesial temporal sclerosis; Focal seizure (HCC) Social History Tobacco UseTypesPacks/DayYears UsedDateSmoking Tobacco: NeverSmokeless Tobacco: NeverAlcohol UseStandard Drinks/WeekCommentsNever0 (1 standard drink = 0.6 oz pure alcohol)Sex and Gender InformationValueDate RecordedSex Assigned at Not on fileLegal RvyViyq2802/18/2025 11:04 AM CDTGender IdentityNot on fileSexual OrientationNot on filedocumented as of this encounter Plan of Treatment Not on file documented as of this encounter Procedures Procedure NamePriorityDate/TimeAssociated DiagnosisCommentsEEG AWAKE AND DROWSY [id number]/13/2025 10:45 AM PRESS WRITER Mesial temporal sclerosis Focal seizure (HCC) documented in this encounter Results * EEG AWAKE AND DROWSY ROUTINE (05/20/2025 10:45 AM PRESS WRITER)Anatomical Region LateralityModalityMagnetic ResonanceSpecimen (Source)Anatomical Location / LateralityCollection Method / VolumeCollection TimeReceived Time Narrative 05/21/2025 9:39 AM PRESS WRITER Table formatting from the original result was not included. PATIENT NAME: Sumit Garcia LOCATION: [facility] TEST DATE: 05/20/2025 : 1945 TECH NAME: Adis ?? AGE: 80 DURATION: 00:25:16 GENDER: REF. PHYSICIAN Male Etta Menezes APRN, CNP CC: N/A MEDICATIONS: ??Vimpat REASON FOR REFERRAL: History of Mesial temporal sclerosis; Focal seizure. Technical details: Routine, surface electrode EEG, performed using 18 channels of digitally acquired EEG, with additional channels for EKG and eye leads. Standard international 10-20 system employed for electrode placement. Video monitoring was not performed. Special technical modifications: None. Duration of study: 25 minutes. Patient arousal states studied: Awake, resting, drowsy. Activation procedures performed: Photic stimulation, hyperventilation. Waveform description: Predominant background during the record reveals a well-formed, 10 Hz alpha rhythm, noted symmetrically over the posterior head regions, and blocking well with eye opening. Intermittent right temporal slowing is noted, characterized by theta frequency activity maximal at the T4 electrode, without associated epileptiform discharges. No spike or sharp waves are seen. Periods of hyperventilation did not significantly alter the recording. An analysis of waveforms during photic stimulation revealed no significant changes. Impression: This is a mildly abnormal standard electroencephalogram showing right temporal slowing but no ongoing epileptiform activity. ?? Clinical/radiographical correlation would be required to interpret these findings. Electronically signed By: Monico Liang MD Neurologist, [facility] 9:34 AM 05/21/2025 ?? Authorizing ProviderResult TypeResult StatusRebecmelania Menezes APRN, CNPEEG ORDERABLEFinal Result documented in this encounter Visit Diagnoses Diagnosis Mesial temporal sclerosis Temporal sclerosis Focal seizure (HCC) Other convulsions documented in this encounter Care Teams Team MemberRelationshipSpecialtyStart DateEnd Date Cristobal Irizarry MD [address] [place] [phone] PCP - GeneralInternal Medicine03/15/25 Etta Menezes, CUSTOMER CARE CONSULTANT, LEAD PRESS OPERATOR [address] [place] [address] Neurology03/15/25documented as of this encounter
[2025-06-21 15:55] VITALS: BP 171/67; PULSE 85; RESP 20; TEMP 37.4; O2SAT 100; BMI 19.5
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
--- OUTSIDE RECORDS SUMMARY | 2025-06-21 17:09 | XMS_ITS | Clinical Summary ---
Author Organization [employer] [facility] Address [address] [place] [address] Care Team Providers Care Senior Bioinformatics Specialist Name Role Phone Cristobal Irizarry MD Primary Care Provider [phone] Allergies No known active allergies Medications MedicationSigDispense QuantityRefillsLast FilledStart DateEnd DateStatus brimonidine (ALPHAGAN) 0.2 % ophthalmic solution 08/19/2020ctive latanoprost (XALATAN) 0.005 % ophthalmic solution INSTILL 1 DROP INTO IN EACH EYE ONCE DAILY IN THE AFSMDAL2609/09/2020ctive timoloL maleate (TIMOPTIC) 0.5 % ophthalmic solution INSTILL 1 DROP IN EACH EYE DAILY IN THE NSVYOFY1609/15/2020ctive medication order composer Preservision- Takes one tablet BID.ctive tamsulosin (FLOMAX) 0.4 mg capsule Indications:Benign prostatic hyperplasia with urinary frequencyTake 2 Capsules (0.8 mg) by mouth once daily after a meal. 180 Capsule ctive Immunizations ImmunizationAdministration DatesNext DueCOVID-19 vaccine (Tucker Blair 30mcg/0.3mL) PF MDV10/08/2020,09/17/2020Influenza RIV4 (Age 18+ Years) PRESERV FREE05/21/2019Influenza, High-dose Zbhgvdftpkt18/19/2018,04/18/2017,05/02/2016 Influenza, Inactivated AIIV4 (Age 65+ Years) Preserv Free03/30/2020Pneumococcal Poly,23-Valent (Pneumovax)05/22/2017Pneumococcal conj 13-Valent (Prevnar 13) 09/19/2016Tdap1Zoster (Shingrix-RZV, recombinant)05/03/2020,02/29/2020 Social History Tobacco UseTypesPacks/DayYears UsedDateSmoking Tobacco: NeverSmokeless Tobacco: Never Tobacco Cessation:Counseling Given: Yes Alcohol UseStandard Drinks/WeekCommentsNot Currently0 (1 standard drink = 0.6 oz pure alcohol)Sex and Gender InformationValueDate RecordedSex Assigned at Not on fileLegal HwgNjrd4007/21/2012 5:25 AM CSTGender IdentityNot on fileSexual OrientationNot on file Last Filed Vital Signs Vital SignReadingTime TakenCommentsBlood Gsetmbpj257/7908/28/2021 12:57 PM VASCULAR PHYSICIAN Nrxfm136908/28/2021 12:57 PM CSTTemperature--Respiratory Igdp914810/10/2020 2:16 PM CDTOxygen Oylnjxlrxc18%08/28/2021 12:57 PM CSTInhaled Oxygen Concentration-- Ljmamg09.7 kg (173 lb 8 oz)08/28/2021 12:57 PM CSTHeight--Body Mass Index-- Plan of Treatment Health MaintenanceDue DateLast DoneCommentsDepression screening for age 12+ 5BMI (ht and wt on same day) for age 18+1961Medicare Wellness for age 65+2008RSV vaccine for adults or (1 - 1-dose 75+ series) 2018COVID-19 vaccine series ( season)5108/16/2020, 10/08/2020, 09/17/2020Influenza Vaccine (#1)509/, 05/21/2019, 04/25/2018, Additional history existsTetanus algezpp60/26/269238 Pneumococcal series for age 50+Jpmvnqqcd44/15/2017, 09/19/2016Zoster (shingles) series for age 50+Sqwojmidr95/27/2020, 02/29/2020Hepatitis B series for 19+Aged OutNo longer eligible based on patient's age to complete this topic Insurance Care Teams Team MemberRelationshipSpecialtyStart DateEnd Date Cristobal Irizarry MD [address] [place] [address] PCP - GeneralInternal Medicine10/10/20
--- NOTE | 2025-06-21 17:23 | ED.GENADULT ---
HPI - General Adult General Chief complaint: Fall/Minor Trauma Stated complaint: fell and hit head Time Seen by Provider: 06/21/25 17:18 History of Present Illness HPI narrative: Pt reports that he has psoriasis and that when he eats certain foods it can make him dizzy. Pt believes this caused him to fall in his kitchen around 1400, fell backwards and hit head on floor. Has no pain in head currently. Pt denies LOC. Pt denies taking any blood thinners. Pt states he was on the floor for 20-30 mins before he was able to get himself to his bedroom and get himself up independently. Pt is A&Ox4 in triage, neuros appear intact. 80-year-old man presenting to the emergency department with concerns of a fall and head injury. A he believes he ate some rich foods in this interacts is somehow with his psoriasis and can make him dizzy. At a little difficult to get clear information on this but had gotten up to walk down the white and subsequently fell striking his head suspected on the kitchen floor. Denies any significant pain and certainly without neck or back pain. Does have a seizure history but apparently this has been quite stable and been long time since he has had a seizure. Denies that this happened today. There is no loss of consciousness. No chest pain or shortness of breath. Reviewing records shows labs from 5 months ago that quite good with a hemoglobin of 11.1 with normal chemistries and renal function Takes lacosamide. Son mentions that his of maybe 4 times a night your to urinate contributing likely to fatigue. Sounds as though he would not have come here otherwise but brought here by his son. Related Data Home Medications ?Medication ?Instructions ?Recorded ?Confirmed brimonidine 0.2 % eye drops 1 drp ophthalmic (eye) BID 01/03/22 02/17/25 latanoprost 0.005 % eye drops 1 drp ophthalmic (eye) .Bedtime 01/03/22 02/17/25 multivitamin 1 tab PO QAM 01/03/22 02/17/25 dorzolamide 2 % eye drops 2 drp ophthalmic (eye) TID 07/22/24 02/17/25 Previous Rx's ?Medication ?Instructions ?Recorded triamcinolone acetonide 0.1 % 1 applic topical BID #80 grams 11/27/23 topical cream polyethylene glycol 3350 17 gram 8.5 g PO QDAY #30 ea 12/23/24 oral powder packet (Miralax) tramadol 50 mg tablet 50 mg PO QID PRN pain #60 tabs 01/14/25 lacosamide 100 mg tablet (Vimpat) 100 mg PO BID #60 tabs 06/02/25 tamsulosin 0.4 mg capsule 0.8 mg (2 x 0.4 mg) PO QDAY BPH 06/10/25 #180 caps Allergies Allergy/AdvReac Type Severity Reaction Status Date / Time soap AdvReac Intermediate Verified 02/17/25 15:27 Review of Systems Status of ROS: Reports: 6 or more systems reviewed and unremarkable except as noted in History and below [facility] Medical History (Updated 06/21/25 @ 19:54 by Gavin Ellis MD) Seizure ?R56.9 - Unspecified convulsions (ICD-10) Lumbar compression fracture ?S32.000A - Wedge compression fracture of unspecified lumbar vertebra, initial encounter for closed fracture (ICD-10) Acute constipation ?K59.00 - Constipation, unspecified (ICD-10) Anxiety ?F41.9 - Anxiety disorder, unspecified (ICD-10) Psoriasis ?L40.9 - Psoriasis, unspecified (ICD-10) Sinus bradycardia ?R00.1 - Bradycardia, unspecified (ICD-10) BPH (benign prostatic hyperplasia) ?N40.0 - Benign prostatic hyperplasia without lower urinary tract symptoms (ICD-10) 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 (ICD-10) Family History Other Colon cancer Social History What is your current living situation?: I presently have a place to live Problems where you live: no known problems In the past 12 months, utilities in danger of being shut off: no In past 12 months, lack of transportation kept you from medical appts, meetings, work, or getting things needed for daily living: no In the past 12 mos, have been you worried that your food would run out before you had money to buy more?: never true In the past 12 mos, the food you bought just didn't last and you didn't have money to buy more?: never true Smoking Status: Never smoker Do you use any of these nicotine containing products: None Second hand tobacco smoke exposure: No How often do you have a drink containing alcohol: never How often do you have six or more drinks on one occasion: Never AUDIT-C Alcohol total score: 0 Non-prescribed substance use: denies use How often does anyone, including family, friends and others, physically hurt you: never How often does anyone, including family, friends and others, insult or talk down to you: never How often does anyone, including family, friends and others, threaten you with harm: never How often does anyone, including family, friends and others, scream or curse at you: never Exam Narrative: Exam Narrative: Pleasant. NAD. Subtle resting tremor. Repetitive in conversation. Exhibiting some questionable recall I think. Cranial nerves 2-12 are intact. He is moving all extremities without difficulty. At the upper occipital scalp there is a slight break in the skin. Dried blood in the area but no active bleeding now. Swelling covering an area of approximately silver dollar. No crepitus or step-off appreciated. Neck is supple nontender. Back nontender. Lungs are clear. Heart in regular rate and rhythm with 1/6 systolic murmur. Abdomen is soft and nontender. Extremities are without apparent injury. Const: Vital Signs, click to edit/add: Vital Signs - 24 hr 06/21/25 15:55 06/21/25 18:39 Temperature 99.3 F Pulse Rate 63 Pulse Rate [Pulse Oximeter] 85 Respiratory Rate 20 16 Blood Pressure 160/71 H Blood Pressure [Ri ght Upper Arm] 171/67 H Pulse Oximetry 100 99 Oxygen Delivery Me thod Room Air Room Air Documenting provider has reviewed patient's vital signs: yes Course Vital Signs Vital signs: Initial Vital Signs Temperature 99.3 F 06/21/25 15:55 Temperature Source Temporal Artery Scan 06/21/25 15:55 Pulse Rate 85 06/21/25 15:55 Respiratory Rate 20 06/21/25 15:55 Blood Pressure 171/67 H 06/21/25 15:55 Blood Pressure Mean 101 06/21/25 15:55 Blood Pressure Position Sitting 06/21/25 15:55 Pulse Oximetry 100 06/21/25 15:55 Oxygen Delivery Method Room Air 06/21/25 15:55 Vital Signs Temperature 99.3 F 06/21/25 15:55 Pulse Rate 85 06/21/25 15:55 Respiratory Rate 20 06/21/25 15:55 Blood Pressure 171/67 H 06/21/25 15:55 Pulse Oximetry 100 06/21/25 15:55 Oxygen Delivery Method Room Air 06/21/25 15:55 Temperature 99.3 F 06/21/25 15:55 Pulse Rate 63 06/21/25 18:39 Respiratory Rate 16 06/21/25 18:39 Blood Pressure 160/71 H 06/21/25 18:39 Pulse Oximetry 99 06/21/25 18:39 Oxygen Delivery Method Room Air 06/21/25 18:39 Medical Decision Making MDM Narrative Medical decision making narrative: It sounds as though this was a mechanical fall. I think is probably a little unsteady. With my concern of recall though I would like to also at least check an EKG. Monitor on quality assurance monitor body. Will also CT head for deeper injury/bleed. Check urinalysis as well given nocturnal frequency. CT head independently reviewed by me looks to be without acute abnormality. Is anxious to leave the emergency department. Radiology over-read below INDICATION: Fall. Hit head. TECHNIQUE: CT of the head without contrast. Coronal and sagittal reformats are included. COMPARISON: Head CT from 12/07/2024. FINDINGS: No acute intracranial hemorrhage. No mass effect or midline shift. No hydrocephalus or extra-axial collections. Patchy white matter hypoattenuation, typical for chronic microvascular ischemic change. Intracranial vascular calcifications. Mild generalized parenchymal volume loss. No acute osseous abnormalities. Mastoid air cells and paranasal sinuses are clear. Normal soft tissues. IMPRESSION: IMPRESSION: 1. No acute intracranial abnormalities. Please note that all CT scans at this facility use dose modulation, iterative reconstruction, and/or weight-based dosing when appropriate to reduce radiation dose to as low as reasonably achievable. Dictated by Uche Kaye MD @ 06/21/2025 6:23:21 PM EKG as below. Urinalysis does look to potentially be infected. Is nitrate positive. Review of record shows in December of 2023 was treated for urinary tract infection. Cultures were lightly positive for Enterococcus I would offer treatment for urinalysis here today. No further events during time of monitoring in the emergency department Cleaned up head. No repair necessary. Ambulating here with a cane and appears well for discharge. Consider icing sore areas over the next couple of days. Stay well hydrated with water. Take care with transitions; move slowly. Prescribing ciprofloxacin as an antibiotic from [facility]. A urine culture will be pending here and we will call you if changes need to be made your treatment plan. Return for severe headache, new and focal weakness, fevers. Medical Records Medical records reviewed: Yes I reviewed the patient's medical records Lab Data Lab results reviewed: Yes I reviewed the patient's lab results Labs: Lab Results 06/21/25 06/21/25 Range/Units 17:41 17:48 POC Troponin I High Sensi 10.6 (2.9-28.0) pg/mL Urine Color Yellow (Yellow) Urine Appearance Clear (Clear) Urine pH 5.0 (5.0-8.5) Ur Specific [place] 1.020 (1.000-1.030) Urine Protein 1+ A (Negative) Urine Glucose (UA) Negative (Negative) Urine Ketones 1+ A (Negative) Urine Blood 2+ A (Negative) Urine Nitrite Positive A (Negative) Urine Bilirubin Negative (Negative) Urine Urobilinogen 0.2 (0.2-1.0) Ur Leukocyte Esterase 1+ A (Negative) Urine RBC 5-10 A (0-2) Urine WBC 5-10 A (0-5) Ur Squamous Epith Cells Few (None-Few) Urine Bacteria Moderate A (None) ECG Data Attestation: I personally reviewed and interpreted this ECG as follows: (Sinus rhythm. 1st degree AV block. Rate of 65) Discharge Plan Discharge Clinical Impression: Closed head injury, Fall, Cystitis Patient Disposition: Home w/ Parent or Adult Condition: Improved Additional Instructions: Consider icing sore areas over the next couple of days. Stay well hydrated with water. Take care with transitions; move slowly. Prescribing ciprofloxacin as an antibiotic from [facility]. A urine culture will be pending here and we will call you if changes need to be made your treatment plan. Return for severe headache, new and focal weakness, fevers. Prescriptions: No Action triamcinolone acetonide 0.1 % cream 1 applic topical BID Qty: 80 1RF dorzolamide 2 % drops 2 drp ophthalmic (eye) TID polyethylene glycol 3350 [Miralax] 17 gram powder in packet 8.5 g PO QDAY Qty: 30 2RF brimonidine 0.2 % drops 1 drp ophthalmic (eye) BID latanoprost 0.005 % drops 1 drp ophthalmic (eye) .Bedtime multivitamin Tablet 1 tab PO QAM tramadol 50 mg tablet 50 mg PO QID PRN (Reason: pain) Qty: 60 0RF lacosamide [Vimpat] 100 mg tablet 100 mg PO BID Qty: 60 2RF tamsulosin 0.4 mg capsule 0.8 mg PO QDAY Qty: 180 0RF Follow Up/Referrals: Cristobal Irizarry MD [Primary Care Provider, Internal Medicine] Stand Alone Forms: [employer] Info Instructions
--- NOTE | 2025-06-21 17:41 | CRLHL7_ITS ---
For Patients: As a result of the Century Cures Act, medical imaging exams and procedure reports are released immediately into your electronic medical record. You may view this report before your referring provider. If you have questions, please contact your health care provider. INDICATION: Fall. Hit head. TECHNIQUE: CT of the head without contrast. Coronal and sagittal reformats are included. COMPARISON: Head CT from 12/07/2024. FINDINGS: No acute intracranial hemorrhage. No mass effect or midline shift. No hydrocephalus or extra-axial collections. Patchy white matter hypoattenuation, typical for chronic microvascular ischemic change. Intracranial vascular calcifications. Mild generalized parenchymal volume loss. No acute osseous abnormalities. Mastoid air cells and paranasal sinuses are clear. Normal soft tissues. IMPRESSION: IMPRESSION: 1. No acute intracranial abnormalities. Please note that all CT scans at this facility use dose modulation, iterative reconstruction, and/or weight-based dosing when appropriate to reduce radiation dose to as low as reasonably achievable. Dictated by Uche Kaye MD @ 06/21/2025 6:23:21 PM (Electronically Signed)
--- OUTSIDE RECORDS SUMMARY | 2025-06-21 17:56 | XMS_ITS | Data Portability ---
Author Organization [facility], [facility] Address [address] [place] [address] Care Team Providers Care Plan Examiner Name Role Phone TESSBEBO VAZQUEZ Referring Provider Assessment No assessment recorded. Plan of Treatment Reminders Order DateSubmit DateProviderLast Modified ByQuintin DetailsLast Modified TimeDetailsAppointmentsNone recorded.LabNone recorded.ReferralNone recorded. ProceduresNone recorded.SurgeriesNone recorded.ImagingNone recorded.Medication OrdersNone recorded. Patient TargetsNo targets recorded. Patient InstructionsNo instructions recorded. Reason for Referral None Reported. Procedures Surgical History Date Name Laterality Status Provider Name and Address Organization Details Recorded Time 04/22/2023 [place] [address] 14:35:041 [place] [address] 14:21:331procedure on [place] [address] 14:21:20vasectomy[place] [address] 14:22:04 Imaging Results None recorded. Procedure Notes None recorded. Medical Equipment None Reported. Allergies No known drug allergies Medications Name Sig Start Date Stop Date Status Note LastModified by Organization Details LastModified Time latanoprost 0.005 % eye drops INSTILL 1 DROP INTO EACH EYE ONCE DAILY IN THE EVENING activeNot AvailableNot AvailableNot Availabletriamcinolone acetonide 0.5 % topical creamAPPLY TOPICALLY EVERY DAY FOR RASH04/22/2023ompletedNot Available Not AvailableNot Availablesulfamethoxazole 800 mg-trimethoprim 160 mg tabletTAKE ONE TABLET BY MOUTH TWICE A DAY04/22/2023ompletedNot AvailableNot AvailableNot Availabletriamcinolone acetonide 0.1 % topical creamAPPLY TOPICALLY TWICE A DAY 04/22/2023ompletedNot AvailableNot AvailableNot Availabletamsulosin 0.4 mg capsuleTAKE TWO CAPSULES BY MOUTH EVERY DAY FOR BPHactiveNot AvailableNot AvailableNot Availablebrimonidine 0.2 % eye dropsINSTILL 1 DROP IN EACH EYE TWICE A DAYactiveNot AvailableNot AvailableNot Availabletimolol maleate 0.5 % eye dropsINSTILL 1 DROP IN EACH EYE DAILY IN THE MORNINGactiveNot AvailableNot AvailableNot Available Vitals Date Recorded Body height Body mass index (BMI) Body weight Provider Name and Address Organization Details Last Updated DateTime 04/22/2023 185.42 cm 19.8 kg/m2 38082.86 g Debra Pereyra [facility] 04/22/2023 14:19:05 Social History Question Answer Notes LastModified by Organization D etails LastModified Time Tobacco Smoking Status Never Smoker Debra Pereyra [facility] Jzeiyxp17/16/2023 14:20:37What Is Your Level Of Caffeine Consumption?NonekosterbauerInformation not jirplfluf08/16/2023What Was The Date Of Your Most Recent Tobacco Screening?04/22/2023osterbauerInformation not yswweogbz31/16/2023 Sex: Unknown Functional Status Question Answer Note LastModified by Organization D etails LastModified Time What is your level of alcohol consumption? None kosterbauerInformation not fobhhrjff51/16/2023 Mental Status None recorded. Family History Nothing Reported. Medical History Condition Response Other N High Blood Pressure N Kidney Stones N Lung Disease N Depression N GERD/Acid Reflux N Sexually Transmitted Infection N Cancer N High Cholesterol N Diabetes N Bleeding Disorder N Heart Disease N Immunizations Vaccine Type Date Status Note Provider Nam e and Address Organization Details Recorded Time Influenza, recombinant, quadrivalent, PF 05/21/2019 completed Debra buitrago [facility] Qfnsizw70/16/2023 14:17:56zoster jetujiaohni23/24/2020completed Debra buitrago [facility] Kpszkmo38/16/2023 14:17:56zoster ouxwbkhatyr23/27/2020completed Debra Osterbauer null, [facility] Liemimg06/16/2023 14:17:56Influenza, high-dose, quadrivalent, PF 03/26/2023ompletedKianna Osterbauer null, [facility] Cbrxgqs74/16/2023 14:17:56Influenza, high-dose, quadrivalent, PF 04/12/2022ompletedKianna Osterbauer null, [facility] Mszpkrh75/16/2023 14:17:56Influenza, high-dose, quadrivalent, PF 04/26/2021ompletedKianna Osterbauer null, [facility] Htvqlqe09/16/2023 14:17:56Influenza, adjuvanted, quadrivalent, PF 03/30/2020completedMarioanna Osterbauer null, [place] [address] 14:17:56COVID-19, mRNA, LNP-S, PF, 30 mcg/0.3 mL dose09/17/2020ompletedKianna Osterbauer null, [place] [address] 14:17:56COVID-19, mRNA, LNP-S, PF, 30 mcg/0.3 mL dose10/08/2020ompletedKianna Osterbauer null, [place] [address] 14:17:56COVID-19, mRNA, LNP-S, PF, 30 mcg/0.3 mL dose12/26/2021ompletedKianna Osterbauer null, [facility] Covrysh83/16/2023 14:17:56COVID-19, mRNA, LNP-S, PF, 30 mcg/0.3 mL dose06/15/2021ompletedKianna Osterbauer null, [facility] Tjcfmmo95/16/2023 14:17:56COVID-19, mRNA, LNP-S, bivalent, PF, 50 mcg/0.5 mL or 25mcg/0.25 mL dose05/01/2022ompletedKianna Osterbauer null, [facility] Wrekdww81/16/2023 14:17:56pneumococcal polysaccharide PPV23 05/22/2017completRuslan buitrago, [facility] 14:17:59Aevx61completRuslan buitrago, [facility] 14:17:56Pneumococcal conjugate PCV 13009/19/2016 completedDebra [facility]itrago, [facility] 14:17:56Influenza, high-dose, trivalent, PF 04/18/2017completedDebra buitrago, [facility] 14:17:56Influenza, high-dose, trivalent, PF 04/25/2018completedDebra buitrago, [facility] Bevaflp89/16/2023 14:17:56Influenza, high-dose, trivalent, PF 05/02/2016completDebra buitrago, [facility] 14:17:56 Past Encounters Encounter ID Performer Location Encounter Start Date Encounter Closed Date Diagnosis/Indication Diagnosis SNOMED-CT Code Diagnosis ICD10 Code Diagnosis IMO Codes Diagnosis Note [id number] BENNETT DAVIS_Britni [address] [place] [address] 04/22/2023 14:09:21 04/29/2023 14:16:41 Lower urinary tract symptoms due to benign prostatic hypertrophy 94875330087691 N40.1 Continue Flomax - will try dropping to one a day and see if this makes any differenceEmpties well, stable.Not interested in further treatment at this time Discussed options for worsening urinary symptoms - add Finasteride vs. workup for procedure such asTURP.Prostate specific antigen above reference range 021121616T94.20 PSA down since ontinue to follow with PCP Health Concerns Section Related Observation LastModified by Organization Detai ls LastModified Time None Recorded Concern Status LastModified by Organization Details LastModified Time None Recorded Advance Directives Directive None Recorded Payers Insurance Date Sequence Insurance Name Policy Number Policy Downs Covered Member ID Downs Member ID Guarantor Name 04/22/2023 1 *SELF PAY* Sumit [id number]: [employer]UE - MEDICARE [id number] A [id number] A [id number]: (MEDICARE REPLACEMENT PPO) [id number] A [id number] A Svien Notes Date Note Type Note Provider Name and Address Fantasma andino Details Recorded Time 04/22/2023 text/html 78 yo M who has previously followed with Dr Mason in [place] presents for concerns regarding urinary frequency. H/o [...] today No family of prostate or bladder cancer.JUWAN PALMA PA-C [address], [place], [address], [facility] Kwoskuf55/16/2023 17:27:57
[2025-06-21 18:39] VITALS: BP 160/71; PULSE 63; RESP 16; O2SAT 99
[2025-06-21 18:44] LABS: Appearance Urine Clear (Clear)
== END 2025-06-21 20:06 | disposition home or self-care (01) ==
PROVIDERS: Emergency Provider Family Medicine; PCP Internal Medicine
DX: S09.90XA Unspecified injury of head, initial encounter (principal); N30.90 Cystitis, unspecified without hematuria; R42 Dizziness and giddiness; W18.30XA Fall on same level, unspecified, initial encounter; Y92.000 Kitchen of unspecified non-institutional (private) residence as the place of occurrence of the external cause
CPT/HCPCS: 36415; 70450; 81001; 84484; 87086; 93005; 99284; 99285